=== PATIENT | female | born 1985 | race Caucasian/White ===

== ENCOUNTER → 2017-05-08 06:12 | Day surgery (SDC) | payer OTHER ==
[~2017-05-08 06:12] MED LIST: Buffered Lidocaine 0.9% SYRIN* 5 ML/SYR SYRINGE INTRADERM ONE; Dexamethasone IV* 4 MG/ML 1 ML (4 MG) ONE; DiMENhydriNATE IV* 50 MG/ML VIAL IV PUSH PRN; Famotidine IV* 10 MG/ML 2 ML (20 mg) IV ONE; Famotidine IV* 10 MG/ML 2 ML (20 mg) ONE; KETAMINE HCL* 50 MG/ML 10 ML VIAL ONE; Ketorolac INJ* 30 MG/ML 1 ML VIAL ONE; Lidocaine 2% PF * 5 ML VIAL ONE; Midazolam* 1 MG/ML 10 ML VIAL (10 MG) ONE; Ondansetron INJ* 2 MG/ML VIAL ONE; PROCHLORPERAZINE INJ 5 MG/ML 2 ML VIAL IV PRN; Propofol* 500 MG/50 ML BTL ONE; Scopolamine 1.5 mg* PATCH TRANSDERM PRN; Scopolamine PATCH Remove* 1 NOTE MISC PATCH OFF ONE; fentaNYL* 50 MCG/ML 2 ML VIAL (100 MCG VIAL) IV PRN; fentaNYL* 50 MCG/ML 2 ML VIAL (100 MCG VIAL) ONE; oxyCODONE/Acetamin 5/325 MG* TAB ONE; oxyCODONE/Acetamin 5/325 MG* TAB PO PRN
[2017-05-08 10:44] VITALS: BP 110/76
--- NOTE | 2017-05-09 14:21 | OP ---
DATE OF OPERATION: 05/08/17 [facility] DATE OF : 83 SURGEON: Christopher Kate MD ANESTHESIOLOGIST: Jarad Ratliff MD ANESTHESIA: Spinal anesthetic. PRE-OP DIAGNOSIS: An incomplete spontaneous miscarriage with secondary abnormal uterine bleeding. POST-OP DIAGNOSIS: An incomplete spontaneous miscarriage with secondary abnormal uterine bleeding, pending pathology. OPERATIVE PROCEDURE: Hysteroscopy and a dilation evacuation of the uterine cavity along with sharp curettage. ESTIMATED BLOOD LOSS: None. SPECIMEN SENT TO PATHOLOGY: Endometrial curettings. FLUIDS: She received 1200 cc of IV crystalloid fluid. URINE OUTPUT: 700 cc of clear urine. FINDINGS: On surgery, the patient was noted to have a uterus, which was sounded to 8 cm in an anteverted position. The cervix was about 0.5 cm dilated with scant blood coming through the cervix, and hysteroscopically the patient was noted to have an endometrium that had no distinct lesions with abundant tissue, and the amount of tissue removed was scant during the sharp curettage and dilation and evacuation. DESCRIPTION OF PROCEDURE: The patient was taken to the operating room where she was identified. She was placed on the operating table where spinal anesthetic was obtained without difficulty. She was then placed in the dorsal lithotomy position, prepped and draped in a normal sterile fashion. Attention was then brought on to the patient's perineum where the urethra was catheterized and the bladder was drained of clear urine. A weighted speculum was then inserted into the patient's vagina. The cervix was identified. It was then grasped with a single-tooth tenaculum. At this point, I proceeded to sound the cervix, which was noted to be in an anteverted position and sounded to 8 cm. The cervix, which had been dilated was dilators. At this point, I proceeded to perform a hysteroscopic survey of the endometrial cavity. A 30 degree hysteroscope was inserted into the cervix. The uterine cavity was then inflated with normal saline, and a survey of the patient's intrauterine cavity revealed findings as noted above. The hysteroscope was then removed, I then proceeded with a suction and curettage of the endometrial cavity, and the denudation of the endometrial cavity was then followed with a sharp curettage, after which I then proceeded with a second look with a hysteroscope and the hysteroscope confirmed complete denudation of the endometrial cavity. All the instruments were then removed from the patient's vagina. Sponge, lap, needle counts were correct x2. All the specimens were sent to Pathology. Pathology report is pending. The patient tolerated the procedure well. Sponge, lap, needle counts were correct x2. She was then transferred to recovery room area in stable condition. [id number]/[facility] #: [id number] MTDD
== END | disposition home or self-care (01) ==
LOC: OR 06:12
PROVIDERS: ATTEND Obstetrics & Gynecology
DX: O01.9 Hydatidiform mole, unspecified (principal); O08.1 Delayed or excessive hemorrhage following ectopic and molar pregnancy; F41.9 Anxiety disorder, unspecified; Z88.1 Allergy status to other antibiotic agents; Z87.891 Personal history of nicotine dependence
CPT/HCPCS: 88305; 88341; 88342; 88360; A9270-GY; J1100; J1885; J2250; J2405; J2704; J3010

== ENCOUNTER 2018-09-03 16:11 | Emergency (ER) | payer BC ==
[2018-09-03] MEDS ORDERED: NS 0.9% 1000 ML** 1,000 ML IV ONE ×2 (18:48→19:55)
[2018-09-03] MEDS ORDERED: Acetaminophen TAB* 325 MG PO ONE (19:02)
--- NOTE | 2018-09-03 19:13 | ED ---
Nausea/Vomiting/Diarrhea HPI - HPI Summary HPI Summary: 33 year old female who states she is approximately 24 1/2 weeks presents with onset of diarrhea 2 days ago. States she has been having 3-5 watery stools a day with the it being worse in the morning and slowing by evening. Last episode was around 3:00 pm. Associated with subjective fever, chills, body aches, and lightheadedness. She was seen at [facility] prior to coming to the ED and had a negative flu test. Continues to feel movement. Denies chest pain, palpitations, SOB, abdominal pain, nausea, vomiting , contractions, vaginal dicharge or bleeding, recent travel out of the country, antibiotic use, or sick contact. - History of Current Complaint Chief Complaint: EDNauseaVomitDiarrh Stated Complaint: 24 WKS PREG/DIZZINESS/DIARRHEA PER PT Time Seen by Provider: 09/03/18 18:43 Hx Obtained From: Patient Pain Intensity: 4 - Allergies/Home Medications Allergies/Adverse Reactions: Allergies Allergy/AdvReac Type Severity Reaction Status Date / Time amoxicillin Allergy Intermediate Rash Verified 09/03/18 16:17 Home Medications: Home Medications Sertraline* [Zoloft*] 100 mg PO BEDTIME 09/03/18 [History Confirmed 09/03/18] PMH/Surg Hx/FS Hx/Imm Hx Previously Healthy: Yes Endocrine/Hematology History: Denies: Hx Diabetes Cardiovascular History: Denies: Hx Hypertension Respiratory History: Reports: Other Respiratory Problems/Disorders - reports mild pneumonia summer 2016 History: Denies: Hx Renal Disease, Other Problems/Disorders Sensory History: Reports: Hx Contacts or Glasses - both, will wear glasses Denies: Hx Hearing Aid Opthamlomology History: Reports: Hx Contacts or Glasses - both, will wear glasses Psychiatric History: Reports: Hx Anxiety, Hx Depression - takes Zoloft - Cancer History Hx Chemotherapy: No - Surgical History Surgery Procedure, Year, and Place: wisdom teeth removed 2000. D&C 2016 Hx Anesthesia Reactions: No Infectious Disease History: No Infectious Disease History: Denies: Traveled Outside the [place] in Last 30 Days - Family History Known Family History: Positive: None Negative: Hypertension, Diabetes Family History: R & n/C - Social History Lives: With Family Alcohol Use: None Hx Substance Use: No Substance Use Type: Reports: None Hx Tobacco Use: No Smoking Status (MU): Former Smoker Amount Used/How Often: <5 cigarettes a day Have You Smoked in the Last Year: No Review of Systems Positive: Fever - Subjective, Chills, Fatigue ENT: Negative Negative: Palpitations, Chest Pain Negative: Shortness Of Breath, Cough Positive: Diarrhea. Negative: Abdominal Pain, Vomiting, Nausea Positive: no symptoms reported Positive: Myalgia Negative: Rash Negative: Headache All Other Systems Reviewed And Are Negative: Yes Physical Exam - Summary Physical Exam Summary: GENERAL APPEARANCE: Well developed, well nourished, alert and cooperative. Appears ill but nontoxic and in no acute distress. CARDIAC: Normal S1 and S2. No S3, S4 or murmurs. Rhythm is regular. There is no peripheral edema, cyanosis or pallor. Extremities are warm and well perfused. Capillary refill is less than 2 seconds. Peripheral pulses intact. LUNGS: Clear to auscultation without rales, rhonchi, wheezing or diminished breath sounds. ABDOMEN: Positive bowel sounds. Soft, nondistended, nontender. No guarding or rebound. No masses or hepatosplenomegally. Fundal height consistent with gestational age. MUSKULOSKELETAL: ROM intact to all extremities. No joint erythema or tenderness. Normal muscular development. Normal gait. SKIN: Skin normal color, texture and turgor with no lesions or eruptions. Triage Information Reviewed: Yes Vital Signs On Initial Exam: Initial Vitals Temp Pulse Resp BP Pulse Ox 98.2 F 109 18 132/72 99 09/03/18 16:12 09/03/18 16:12 09/03/18 16:12 09/03/18 16:12 09/03/18 16:12 Vital Signs Reviewed: Yes Diagnostics - Vital Signs Vital Signs Temp Pulse Resp BP Pulse Ox 09/03/18 18:57 94 09/03/18 16:12 98.2 F 109 18 132/72 99 - Laboratory Result Diagrams: 09/03/18 19:28 09/03/18 19:28 Lab Statement: Any lab studies that have been ordered have been reviewed, and results considered in the medical decision making process. Re-Evaluation - Re-Evaluation First Eval Re-Evaluation Time: 19:50 Change: Unchanged Comment: Patient states she feels about the same. She has completed her first liter of NS. Labs were reviewed with the patient. She has mild hypokalemia therefore will give oral replacement and a second liter of fluid. Second Eval Re-Evaluation Time: 21:15 Change: Improved Comment: Patient has completed her second liter of fluid and received the potasium. States is feeling much better. She has been able to urinate and reports no further episodes of diarrhea. UA is pending. Plan d/c to home pending UA results. Naus/Vom/Diarrhea Course/Dx - Course Course Of Treatment: 33 year old female who states she is approximately 24 1/2 weeks presents with onset of diarrhea 2 days ago. States she has been having 3-5 watery stools a day with the it being worse in the morning and slowing by evening. Last episode was around 3:00 pm. Associated with subjective fever, chills, body aches, and lightheadedness. She was seen at [facility] prior to coming to the ED and had a negative flu test. Continues to feel movement. Denies chest pain, palpitations, SOB, abdominal pain, nausea, vomiting, contractions, vaginal dicharge or bleeding, recent travel out of the country, antibiotic use, or sick contact. She was afebrile at triage with mild tachycardia and otherwise stable vital signs. Labs showed a normal WBC with mild hypokalemia and hypocalcemia. She was given acetaminophen 650 mg, 2 liters of NS and KCL 40 meq PO in the ED with improvement in her symptoms. She remained afebrile, pulse rate normalized, with no further episodes of diarrhea. She is to follow up with her PCP or [facility] in 3 days. Anticipatory guidance and warning symptoms were reviewed with the patient. Verbalizes understanding and agrees with POC. She was d/c'd home in stable condition. - Differential Dx/Diagnosis Differential Diagnoses - Female: , Gastroenteritis (Viral), Gastroenteritis (Bacterial), Diarrhea Provider Diagnosis: Acute diarrhea Condition At Discharge: Stable Discharge - Sign-Out/Discharge Documenting (check all that apply): Patient Departure Patient Received Moderate/Deep Sedation with Procedure: No - Discharge Plan Condition: Stable Disposition: HOME Patient Education Materials: Potassium Content of Foods List (ED), Acute Diarrhea (ED) Referrals: Avila Hadley, DO [Primary Care Provider] - 3 Days (If no improvement in symptoms.) Additional Instructions: Acute diarrhea typically resolves on its own without treatment over 2-3 days. The most important consideration with diarrhea is avoiding dehydration. Be sure to drink plenty of fluids. Avoid beverages containing caffeine or artificial sweeteners as these can worsen symptoms. Be sure to eat a well balanced diet. Boiled starches and cereals (potatoes, rice , cream of wheat, oatmeal) as well as food such as crackers, toast, bananas, soups and boiled vegetables are usually recommended if you are having watery diarrhea. Be sure to use good hand hygiene to prevent spreading infection. Use an over the counter pain medication such as acetaminophen (Tylenol) according to directions as needed for aches and pains. Your potassium level was slightly low likely from the diarrhea. We gave you a dose of potassium to replace what you lost. Make sure you are eating foods high in potassium for the next few days. A list of foods was provided to you. Follow up with your primary care provider or [facility] in 3 days if symptoms persist. Return to the emergency room if you have fever greater than 100.5 F, have severe abdominal pain, persistent vomiting, blood in your vomit or stool, you become weak or dizzy, or have any worsening of symptoms. - Billing Disposition and Condition Condition: STABLE Disposition: Home
[2018-09-03 19:40] LABS: ABS Basophils 0 10^3/ul (0-0.2); ABS Eosinophils 0 10^3/ul (0-0.6); ABS Lymphocytes 0.5 10^3/ul (1.0-4.8); ABS Monocytes 0.3 10^3/ul (0-0.8); ABS Neutrophils 4.3 10^3/ul (1.5-7.7); ABS Nucleated RBC 0 10^3/ul; Eosinophil % 0.6 %; Hematocrit 33 % (33-41); Hemoglobin 11.2 g/dL (12.0-16.0); Lymphocyte % 8.9 %; Mean Corpuscular HGB Conc 34 g/dL (31-36); Mean Corpuscular Hemoglobin 30 pg (27-31); Mean Corpuscular Volume 89 fL (80-97); Mean Platelet Volume 7.9 fL (7.4-10.4); Nucleated Red Blood Cells % 0.1; Platelet Count 170 10^3/uL (150-450); Red Blood Count 3.74 10^6 /uL (3.70-4.87); Red Cell Distribution Width 14 % (10.5-15); White Blood Count 5.1 10^3/uL (3.5-10.8)
[2018-09-03 19:51] LABS: Albumin 3.6 g/dL (3.2-5.2); Albumin/Globulin Ratio 1.3 (1-3); EGFR African American 170.9 (>60); EGFR Non-African American 141.2 (>60); Globulin 2.7 g/dL (2-4); Potassium 3.2 mmol/L (3.5-5.0); Total Bilirubin 0.4 mg/dL (0.2-1.0); Total Protein 6.3 g/dL (6.4-8.9)
[2018-09-03] MEDS ORDERED: Potassium Chlor TAB* 20 MEQ TAB.ER PO ONE (19:53)
[2018-09-03 21:29] LABS: Urine Appearance Clear; Urine Bilirubin Negative (Negative); Urine Blood Negative (Negative); Urine Color Yellow; Urine Glucose Negative (Negative); Urine Ketones Negative (Negative); Urine Nitrite Negative (Negative); Urine Protein Negative (Negative); Urine Specific Gravity 1.006 (1.010-1.030); Urine Urobilinogen Negative (Negative)
[2018-09-03 21:57] VITALS: BP 103/55
== END 2018-09-03 21:58 | disposition home or self-care (01) ==
LOC: ED 16:11
DX: O26.892 Other specified pregnancy related conditions, second trimester (principal); R19.7 Diarrhea, unspecified; R50.9 Fever, unspecified; M79.10 Myalgia, unspecified site; Z3A.24 24 weeks gestation of pregnancy; F32.9 Major depressive disorder, single episode, unspecified; Z88.0 Allergy status to penicillin; Z87.891 Personal history of nicotine dependence
CPT/HCPCS: 36415; 80053; 81003; 85025; 96360; 96361; 99283; A9270-GY

== ENCOUNTER 2018-11-17 19:52 | Inpatient (IN) | payer BC ==
[2018-11-17 20:49] LABS: ABS Lymphocytes 2.4 10^3/ul (1.0-4.8); ABS Monocytes 0.5 10^3/ul (0-0.8); ABS Neutrophils 6.5 10^3/ul (1.5-7.7); Eosinophil % 0.4 %; Hematocrit 35 % (35-47); Hemoglobin 11.7 g/dL (12.0-16.0); Lymphocyte % 25.4 %; Mean Corpuscular HGB Conc 34 g/dL (31-36); Mean Corpuscular Hemoglobin 30 pg (27-31); Mean Corpuscular Volume 90 fL (80-97); Mean Platelet Volume 8.5 fL (7.4-10.4); Platelet Count 175 10^3/uL (150-450); Red Blood Count 3.89 10^6 /uL (3.70-4.87); Red Cell Distribution Width 14 % (10.5-15); White Blood Count 9.5 10^3/uL (3.5-10.8)
[2018-11-17] MEDS ORDERED: Buffered Lidocaine 1% SYRIN* 1 ML/SYRINGE INTRADERM ONE (21:29)
[2018-11-17] MEDS ORDERED: Dinoprostone* 10 MG VAG.SUPP VAGINAL ONE (21:29)
[2018-11-17] MEDS ORDERED: Lactated Ringers 1000 ML Bag* 1,000 ML IV ONE (21:29)
--- NOTE | 2018-11-17 21:43 | HP ---
General Information - Reason for Visit Pt reports she was sitting on her couch at home, felt a trickle of fluid and when she stood up she felt a pop and a gush of clear fluid. Pt denies ctx reports feeling crampy and +FM. - General Information Maternal Age: 33 Grav: 4 Para: 1 SAB: 2 IEA: 0 Estimated Due Date: 12/21/18 Determined By: LMP Maternal Blood Type and Rh: A Positive - Results this Serology/RPR Result: Non-Reactive Rubella Result: Immune HBsAg Result: Negative HIV Result: Negative GBS Culture Result: Negative Past Medical History Delivery History: Hx Uncomplicated Vaginal Delivery Pertinent Past Medical History: See Records - anxiety, gestational diabetes, history of with atypical site nodule Pertinent Past Surgical History: See Records - D&E x 2 Pertinent Family History: See Records - PGM: breast cancer; MGM: colon CA; aunt: thyroid disorder - Antepartal Records Antepartal Records: Reviewed, Complicated by: - gestational diabetes, history of with atypical placental site nodule, ja lying placenta ( resolved) Review of Systems Constitutional: Comfortable CV Complaint: No Respiratory: Shortness of Breath: No Gastrointestinal: No Nausea/Vomiting, Normal Bowel Movement Genitourinary: Leaking Fluid, No Dysuria, No Bleeding Musculoskeletal: No Complaint, Pressure Neurological: No Headache, No Visual Changes Movement: Normal Exam Allergies/Adverse Reactions: Allergies amoxicillin Allergy (Intermediate, Verified 11/17/18 20:31) Rash T:97.9, P:73, R:16, BP:124/68, O2:98% Lab Values - Entire Visit: Laboratory Tests 11/17/18 11/17/18 20:30 20:30 WBC 9.5 RBC 3.89 Hgb 11.7 L Hct 35 MCV 90 MCH 30 MCHC 34 RDW 14 Plt Count 175 MPV 8.5 Neut % (Auto) 68.8 Lymph % (Auto) 25.4 [place] % (Auto) 5.0 Eos % (Auto) 0.4 Baso % (Auto) 0.4 Absolute Neuts (auto) 6.5 Absolute Lymphs (auto) 2.4 Absolute Monos (auto) 0.5 Absolute Eos (auto) 0.0 Absolute Basos (auto) 0.0 Absolute Nucleated RBC 0.0 Nucleated RBC % 0.0 Blood Type A Positive - Measurements Height: 5 ft 4 in Weight: 215 lb Weight in lbs: [id number] Body Mass Index (BMI): 36.8 Pre- Weight: 180 lb Weight Gained This : 35 lbs and 0 ozs - Exam Breast: Breast Exam Deferred CVA: No CVA Tenderness Extremities: No Edema Heart: Normal Rhythm/Heart Sounds HEENT: No Significant Findings Lungs: Clear Bilaterally Rectal: Rectal Exam Deferred Reflexes: DTR 2+ Thyroid: No Thyromegaly - Abdominal Exam Abdomen Exam: Fundal Height Consistent with Dates - Ultrasound/Biophysical Profile Ultrasound Status: Not Done Targeted Exam Findings Estimated Weight: 6lbs 10oz Presenting Part: Vertex Membrane Status: Leaking Amniotic Fluid Evaluation: Gross Rupture Bleeding/Discharge: None EFM Findings - External Monitor Findings Baseline Heart Rate: 130 External Monitor Findings: Accelerations Present, No Pattern of Variable or Late Decelerations, Variability Moderate, Baseline Stable Contractions: Irregular, Mild, < 45 Seconds Assessment/Plan - Assessment 33 y.o. , 35w1d EGA, Gestational diabetes (diet controlled), PPROM - Obstetrical Risk Factors Obstetrical Risk Factors: GBS Unknown, - Plan Plan: Induction - Date/Time of Admission Date of Admission: 11/17/18 Time of Admission: 21:00
[2018-11-17] MEDS ORDERED: Lactated Ringers 1000 ML Bag* 1,000 ML IV SCH (22:00)
[2018-11-17] MEDS ORDERED: ceFAZolin 2 GM PREMIX in ORs 2 GM/50 ML BAG IVPB ONE (22:00)
[2018-11-17] MEDS ORDERED: Promethazine INJ(RESTRICTED)* 25 MG/ML 1 ML VIAL IV PRN (22:06)
[2018-11-17] MEDS ORDERED: Nalbuphine* 10 MG/ML 1 ML VIAL IV PRN (22:06)
[2018-11-18] MEDS: Sertraline* 100 MG TAB PO SCH ×2 (00:22→21:02)
[2018-11-18] MEDS ORDERED: Oxytocin in LR* 20 UNITS/1,000 ML BAG IVPB ONE (03:59)
[2018-11-18] MEDS ORDERED: Glycerin ADULT SUPP PR PRN (04:23)
[2018-11-18] MEDS ORDERED: Acetaminophen TAB* 325 MG PO PRN (04:23)
--- NOTE | 2018-11-18 04:32 | PROCNOTE ---
[facility] OB: Delivery Note - Delivery A Date of : 11/18/18 Time of : 03:48 Sex: Male Score 1 Minute: 6 Score 5 Minutes: 7 - 10 min 9 Gestational Age in Weeks and Days at Delivery: 35 Weeks and 2 Days Delivery Method: Spontaneous Vaginal Labor: Induced Amniotic Fluid: Clear Estimated Blood Loss: 250 Anesthesia/Analgesia: None Delivered By: Elly Baird - Nursery Level of Nursery: Regular/Bedside - Perineum Perineal Injury: Perineal Laceration, 1st Degree Perineal Repair: By Delivering Practioner - Events Delivery Events of Note: Pitocin Only After Delivery Delivery Events of Note Comment: Succenturiate placenta, sent to pathology. Nuchal cord x 1, easily reduced
[2018-11-18] MEDS ORDERED: Lactated Ringers 1000 ML Bag* 1,000 ML IV SCH (05:00)
[2018-11-18] MEDS: Ibuprofen TAB* 600 MG PO PRN ×2 (05:02→16:30)
[2018-11-18] MEDS ORDERED: oxyCODONE/Acetamin 5/325 MG* TAB PO ONE (06:34)
[2018-11-18] MEDS: Oxytocin in LR* 20 UNITS/1,000 ML BAG IVPB SCH ×2 (06:52→08:20)
[2018-11-18] MEDS ORDERED: ceFAZolin VIAL(*) 1 GM in NS 0.9% 50 ML* 50 ML IVPB SCH (07:30)
[2018-11-18] MEDS ORDERED: fentaNYL* 50 MCG/ML 2 ML VIAL (100 MCG VIAL) IV ONE (08:00)
[2018-11-18] MEDS ORDERED: fentaNYL* 50 MCG/ML 2 ML VIAL (100 MCG VIAL) ONE (08:23)
[2018-11-18] MEDS ORDERED: Simethicone TAB* 80 MG TAB.CHEW PO SCH (08:30)
[2018-11-18] MEDS ORDERED: Lidocaine 1% INJ* 10 MG/ML 30 ML SDV ONE (09:02)
[2018-11-18] MEDS: Docusate CAP* 100 MG PO SCH ×3 (10:30→21:02)
[2018-11-18] MEDS: ceFAZolin 1 GM* Q8H (AddVan) IVPB SCH ×4 (11:09→19:39)
[2018-11-18] MEDS ORDERED: Clindamycin 900 MG IVPREMIX(* 900 MG/50 ML SDV IV ONE (14:00)
[2018-11-18] MEDS: Dibucaine 1% 28.35 GM TUBE PR PRN (15:28)
[2018-11-18] MEDS: Witch Hazel PAD* JAR TOPICAL PRN (15:29)
[2018-11-19] MEDS: Ibuprofen TAB* 600 MG PO PRN ×3 (02:07→19:44)
[2018-11-19 06:58] LABS: ABS Eosinophils 0.1 10^3/ul (0-0.6); ABS Lymphocytes 2.5 10^3/ul (1.0-4.8); ABS Monocytes 0.3 10^3/ul (0-0.8); Eosinophil % 0.8 %; Hematocrit 25 % (35-47); Hemoglobin 8.3 g/dL (12.0-16.0); Lymphocyte % 30.9 %; Mean Corpuscular HGB Conc 33 g/dL (31-36); Mean Corpuscular Hemoglobin 30 pg (27-31); Mean Corpuscular Volume 90 fL (80-97); Mean Platelet Volume 8.2 fL (7.4-10.4); Platelet Count 147 10^3/uL (150-450); Red Cell Distribution Width 14 % (10-15)
[2018-11-19] MEDS: Ferrous Gluconate TAB* 324 MG TAB PO SCH ×2 (08:33→21:08)
[2018-11-19] MEDS: Docusate CAP* 100 MG PO SCH ×3 (08:35→21:08)
[2018-11-19] MEDS: Dibucaine 1% 28.35 GM TUBE PR PRN (18:15)
[2018-11-19] MEDS: Witch Hazel PAD* JAR TOPICAL PRN (18:15)
[2018-11-19] MEDS: Sertraline* 100 MG TAB PO SCH (21:08)
[2018-11-20] MEDS: Ibuprofen TAB* 600 MG PO PRN ×2 (04:03→11:43)
[2018-11-20 09:09] VITALS: BP 117/66
[2018-11-20] MEDS: Docusate CAP* 100 MG PO SCH (09:16)
[2018-11-20] MEDS: Ferrous Gluconate TAB* 324 MG TAB PO SCH (09:16)
== END 2018-11-20 14:29 | disposition home or self-care (01) | DRG 560 ==
LOC: MCHOBOUT 19:52 → MCHOB 20:15
PROVIDERS: ADMIT Midwife; ATTEND Midwife
PROC: 10E0XZZ Delivery of Products of Conception, External Approach (ICD-10-PCS; principal; 2018-11-18)
PROC: 3E033VJ Introduction of Other Hormone into Peripheral Vein, Percutaneous Approach (ICD-10-PCS; 2018-11-18)
DX: O42.013 Preterm premature rupture of membranes, onset of labor within 24 hours of rupture, third trimester (principal); Z37.0 Single live birth; O24.420 Gestational diabetes mellitus in childbirth, diet controlled; O99.344 Other mental disorders complicating childbirth; F41.9 Anxiety disorder, unspecified; O69.81X0 Labor and delivery complicated by cord around neck, without compression, not applicable or unspecified; O90.81 Anemia of the puerperium; D64.9 Anemia, unspecified; Z3A.35 35 weeks gestation of pregnancy
CPT/HCPCS: 36415; 85025; 86850; 86900; 86901; 87070; 87077; 87184; 87186; 88305; 88307; A9270-GY; J0690; J2300; J2550; J3010

== ENCOUNTER 2018-11-24 19:20 | Emergency (ER) | payer BC ==
[2018-11-24] MEDS ORDERED: NS 0.9% 1000 ML** 1,000 ML IV ONE (19:43)
[2018-11-24 20:09] LABS: ABS Basophils 0.1 10^3/ul (0-0.2); ABS Eosinophils 0.2 10^3/ul (0-0.6); ABS Lymphocytes 3.1 10^3/ul (1.0-4.8); ABS Monocytes 0.3 10^3/ul (0-0.8); ABS Neutrophils 6.1 10^3/ul (1.5-7.7); Hematocrit 31 % (35-47); Hemoglobin 10.5 g/dL (12.0-16.0); Lymphocyte % 31.6 %; Mean Corpuscular HGB Conc 34 g/dL (31-36); Mean Corpuscular Hemoglobin 30 pg (27-31); Mean Corpuscular Volume 90 fL (80-97); Mean Platelet Volume 7.4 fL (7.4-10.4); Platelet Count 291 10^3/uL (150-450); Red Blood Count 3.46 10^6 /uL (3.70-4.87); Red Cell Distribution Width 14 % (10-15); White Blood Count 9.8 10^3/uL (3.5-10.8)
--- NOTE | 2018-11-24 20:14 | ED ---
Abdominal Pain/Female - HPI Summary HPI Summary: Patient with history of having given 6 days ago complains of new onset fever up to 100.8 and new onset odor to vaginal discharge. Patient has persistent cramping, nausea and vaginal clots since giving , with no change in these symptoms. Followed by [facility] Dr. Kate who advised patient to come to the ED out of concern for retained products of conception. Medical history is none. . Patient gave 5 weeks early, vaginally. Denies any other symptoms, injury or pain. Advil taken today at 6 PM, improvement in abdominal cramping. Current pain here in the ED 07/25. - History of Current Complaint Chief Complaint: EDOBProblems Stated Complaint: LEFT OVER PLACENTA PER PT Time Seen by Provider: 11/24/18 19:35 Hx Obtained From: Patient Onset/Duration: Sudden Onset, Lasting Hours Severity Initially: Mild Severity Currently: Mild Pain Intensity: 2 Pain Scale Used: 0-10 Numeric Location: Discrete At: RLQ, Discrete At: LLQ, Suprapubic Radiates to: Back Character: Cramping Aggravating Factor(s): Nothing Alleviating Factor(s): Nothing Associated Signs and Symptoms: Positive: Fever, Back Pain, Vaginal Discharge, Nausea Allergies/Adverse Reactions: Allergies Allergy/AdvReac Type Severity Reaction Status Date / Time amoxicillin Allergy Intermediate Rash Verified 11/24/18 19:24 PMH/Surg Hx/FS Hx/Imm Hx Endocrine/Hematology History: Reports: Hx Diabetes - GDM1 Cardiovascular History: Denies: Hx Hypertension Respiratory History: Reports: Other Respiratory Problems/Disorders - reports mild pneumonia summer 2016 History: Denies: Hx Renal Disease, Other Problems/Disorders Sensory History: Reports: Hx Contacts or Glasses - both, will wear glasses Denies: Hx Hearing Aid Opthamlomology History: Reports: Hx Contacts or Glasses - both, will wear glasses EENT History: Denies: Hx Deafness Neurological History: Denies: Hx Dementia Psychiatric History: Reports: Hx Anxiety, Hx Depression - takes Zoloft - Cancer History Hx Chemotherapy: No - Surgical History Surgery Procedure, Year, and Place: wisdom teeth removed 2000. D&C 2016 Hx Anesthesia Reactions: No Infectious Disease History: No Infectious Disease History: Denies: Traveled Outside the [place] in Last 30 Days - Family History Known Family History: Positive: None Negative: Hypertension, Diabetes Family History: R & n/C - Social History Alcohol Use: None Hx Substance Use: No Substance Use Type: Reports: None Hx Tobacco Use: No Smoking Status (MU): Former Smoker Amount Used/How Often: <5 cigarettes a day Have You Smoked in the Last Year: No Review of Systems Positive: Fever Eyes: Negative ENT: Negative Cardiovascular: Negative Respiratory: Negative Positive: Abdominal Pain, Nausea Genitourinary: Negative Musculoskeletal: Negative Skin: Negative Neurological: Negative Psychological: Normal All Other Systems Reviewed And Are Negative: Yes Physical Exam Triage Information Reviewed: Yes Vital Signs On Initial Exam: Initial Vitals Temp Pulse Resp BP Pulse Ox 98.4 F 68 16 135/89 99 11/24/18 19:22 11/24/18 19:22 11/24/18 19:22 11/24/18 19:22 11/24/18 19:22 Vital Signs Reviewed: Yes Appearance: Positive: Well-Appearing Skin: Positive: Warm Head/Face: Positive: Normal Head/Face Inspection Eyes: Positive: Normal ENT: Positive: Normal ENT inspection Neck: Positive: Supple Respiratory/Lung Sounds: Positive: Clear to Auscultation Cardiovascular: Positive: Normal Abdomen Description: Positive: Other: - Tender in lower quadrants and suprapubically. Abdominal exam otherwise unremarkable. Musculoskeletal: Positive: Normal Neurological: Positive: Normal Psychiatric: Positive: Normal AVPU Assessment: Alert - Radisson Coma Scale Best Eye Response: 4 - Spontaneous Best Motor Response: 6 - Obeys Commands Best Verbal Response: 5 - Oriented Coma Scale Total: 15 Diagnostics - Vital Signs Vital Signs Temp Pulse Resp BP Pulse Ox 11/24/18 19:31 68 129/73 99 11/24/18 19:30 86 98 11/24/18 19:22 98.4 F 68 16 135/89 99 - Laboratory Lab Results: Lab Results 11/24/18 Range/Units 19:57 WBC 9.8 (3.5-10.8) 10^3/uL RBC 3.46 L (3.70-4.87) 10^6 /uL Hgb 10.5 L (12.0-16.0) g/dL Hct 31 L (35-47) % MCV 90 (80-97) fL MCH 30 (27-31) pg MCHC 34 (31-36) g/dL RDW 14 (10-15) % Plt Count 291 (150-450) 10^3/uL MPV 7.4 (7.4-10.4) fL Neut % (Auto) 62.3 % Lymph % (Auto) 31.6 % [place] % (Auto) 3.5 % Eos % (Auto) 2.0 % Baso % (Auto) 0.6 % Absolute Neuts (auto) 6.1 (1.5-7.7) 10^3/ul Absolute Lymphs (auto) 3.1 (1.0-4.8) 10^3/ul Absolute Monos (auto) 0.3 (0-0.8) 10^3/ul Absolute Eos (auto) 0.2 (0-0.6) 10^3/ul Absolute Basos (auto) 0.1 (0-0.2) 10^3/ul Absolute Nucleated RBC 0.0 10^3/ul Nucleated RBC % 0.0 Result Diagrams: 11/24/18 19:57 11/24/18 19:57 Lab Statement: Any lab studies that have been ordered have been reviewed, and results considered in the medical decision making process. Abdominal Pain Fem Course/Dx - Course Course Of Treatment: Patient with history of having given 6 days ago complains of new onset fever up to 100.8 and new onset odor to vaginal discharge. Patient has persistent cramping, nausea and vaginal clots since giving , with no change in these symptoms. Followed by [facility] Dr. Kate who advised patient to come to the ED out of concern for retained products of conception. Medical history is none. . Patient gave 5 weeks early , vaginally. Denies any other symptoms, injury or pain. Advil taken today at 6 PM, improvement in abdominal cramping. Current pain here in the ED 07/25. Vital signs within normal limits. Labs unremarkable. Pelvic ultrasound positive for retained products of conception. Discussed patient with [facility] Dr. Kate who recommended Rocephin 1 g IV here in the ED, prescription for third-generation cephalosporin by mouth and follow-up in the clinic tomorrow. Patient given Rocephin 1 g here in the ED. Rx for Ceftin ear. Patient understands and approves of plan. - Diagnoses Provider Diagnoses: Retained products of conception Discharge - Sign-Out/Discharge Documenting (check all that apply): Patient Departure Patient Received Moderate/Deep Sedation with Procedure: No - Discharge Plan Condition: Stable Disposition: HOME Prescriptions: Cefdinir [Cefdinir 300 MG CAP] 300 mg PO BID 5 Days #10 capsule Patient Education Materials: Fever in Adults (ED) Referrals: Avila Hadley DO [Primary Care Provider] - Christopher Kate MD [Medical Doctor] - Additional Instructions: Follow up with [facility] Dr. Kate tomorrow for further evaluation. Take antibiotics as directed. Continue take Tylenol or ibuprofen for control of fever. Return to the ED for any new or worsening symptoms. - Billing Disposition and Condition Condition: STABLE Disposition: Home
[2018-11-24 20:32] LABS: Albumin 4.1 g/dL (3.2-5.2); Albumin/Globulin Ratio 1.4 (1-3); BUN/Creatinine Ratio 18.2 (8-20); C Reactive Protein 14.14 mg/L (<8.01); Calcium 9.4 mg/dL (8.6-10.3); EGFR Non-African American 102.5 (>60); Potassium 3.7 mmol/L (3.5-5.0); Total Bilirubin 0.2 mg/dL (0.2-1.0); Total Protein 7.1 g/dL (6.4-8.9)
[2018-11-24] MEDS ORDERED: cefTRIAXone(*) 1 GM in NS 0.9% 50 ML* 50 ML IVPB ONE (23:08)
[2018-11-25 00:35] VITALS: BP 116/71
== END 2018-11-25 00:33 | disposition home or self-care (01) ==
LOC: ED 19:20
DX: O72.2 Delayed and secondary postpartum hemorrhage (principal)
CPT/HCPCS: 36415; 76856; 80053; 83605; 85025; 86140; 87040; 96361; 96365; 99283; J0696

== ENCOUNTER → 2019-01-07 05:48 | Day surgery (SDC) | payer BC ==
[~2019-01-07 05:48] MED LIST changes: +Acetaminophen TAB* 325 MG ONE; +Acetaminophen TAB* 325 MG PO PRN; -Buffered Lidocaine 0.9% SYRIN* 5 ML/SYR SYRINGE INTRADERM ONE; +Buffered Lidocaine 1% SYRIN* 1 ML/SYRINGE INTRADERM ONE; +DOXYCYCLINE IVPB ONE; +DiMENhydriNATE IV* 50 MG/ML VIAL ONE; +HYDROmorphone INJ1* 1 MG/ML SYRINGE ONE; -KETAMINE HCL* 50 MG/ML 10 ML VIAL ONE; +Lactated Ringers 1000 ML Bag* 1,000 ML IV SCH; +Methylergonovine INJ* 0.2 MG/ML 1ML AMP ONE; -Midazolam* 1 MG/ML 10 ML VIAL (10 MG) ONE; +Midazolam* 1 MG/ML 5 ML VIAL (5 MG) ONE; +NS IVPB ONE; +Naloxone* 0.4 MG/ML 1 ML VIAL IV PRN; +OXYTOCIN* 10 UNITS/ML 1 ML VIAL ONE; -PROCHLORPERAZINE INJ 5 MG/ML 2 ML VIAL IV PRN; +Propofol* 10 MG/ML 20 ML BTL ONE; -Propofol* 500 MG/50 ML BTL ONE; -Scopolamine 1.5 mg* PATCH TRANSDERM PRN; -Scopolamine PATCH Remove* 1 NOTE MISC PATCH OFF ONE; -fentaNYL* 50 MCG/ML 2 ML VIAL (100 MCG VIAL) IV PRN; +oxyCODONE TAB* 5 MG TAB PO PRN; -oxyCODONE/Acetamin 5/325 MG* TAB ONE; -oxyCODONE/Acetamin 5/325 MG* TAB PO PRN
[2019-01-07] MEDS: HYDROmorphone INJ1* 1 MG/ML SYRINGE IV PRN ×2 (09:34→09:43)
[2019-01-07 10:20] VITALS: BP 127/42
== END | disposition home or self-care (01) ==
LOC: OR 05:48
PROVIDERS: ATTEND Obstetrics & Gynecology
DX: O72.0 Third-stage hemorrhage (principal)
CPT/HCPCS: 88305; A9270-GY; J1100; J1170; J1240; J1885; J2210; J2250; J2405; J2590; J2704; J3010

== ENCOUNTER 2019-03-27 03:11 | Emergency (ER) | payer BC ==
[2019-03-27 03:44] LABS: ABS Eosinophils 0.1 10^3/ul (0-0.6); ABS Lymphocytes 2.6 10^3/ul (1.0-4.8); ABS Monocytes 0.4 10^3/ul (0-0.8); ABS Neutrophils 5.4 10^3/ul (1.5-7.7); Eosinophil % 0.9 %; Hematocrit 40 % (35-47); Hemoglobin 13.1 g/dL (12.0-16.0); Lymphocyte % 30.6 %; Mean Corpuscular HGB Conc 33 g/dL (31-36); Mean Corpuscular Hemoglobin 28 pg (27-31); Mean Corpuscular Volume 85 fL (80-97); Mean Platelet Volume 7.7 fL (7.4-10.4); Nucleated Red Blood Cells % 0.1; Platelet Count 261 10^3/uL (150-450); Red Blood Count 4.63 10^6 /uL (3.70-4.87); Red Cell Distribution Width 13 % (10-15); White Blood Count 8.4 10^3/uL (3.5-10.8)
--- NOTE | 2019-03-27 03:45 | ED ---
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 She describes the pain as sharp and notes that it is intermittent. She rates her current pain severity a 9/10. She takes Zoloft at home and took ibuprofen for the pain. No aggravating or alleviating factors noted. She also denies any fever, vomiting, or diarrhea. She has recent Hx of frequent UTI. - History of Current Complaint Chief Complaint: EDAbdPain Stated Complaint: ABD PAIN PER PT Time Seen by Provider: 03/27/19 03:13 Hx Obtained From: Patient Onset/Duration: Sudden Onset, Lasting Hours, Still Present Timing: Intermittent Episode Lasting - minutes Severity Initially: Severe Severity Currently: Severe Pain Intensity: 9 Pain Scale Used: 0-10 Numeric Location: Discrete At: RLQ Character: Sharp Aggravating Factor(s): Nothing Alleviating Factor(s): Nothing Associated Signs and Symptoms: Negative: Fever, Vomiting, Diarrhea Allergies/Adverse Reactions: Allergies Allergy/AdvReac Type Severity Reaction Status Date / Time amoxicillin Allergy Intermediate Rash Verified 03/27/19 03:14 PMH/Surg Hx/FS Hx/Imm Hx Endocrine/Hematology History: Reports: Hx Diabetes - GDM1, Hx Anemia - ONLY AFTER DELIVERY 11/2018 Cardiovascular History: Denies: Hx Hypertension, Other Cardiovascular Problems/Disorders Respiratory History: Reports: Other Respiratory Problems/Disorders - reports mild pneumonia summer 2016 GI History: Denies: Other GI Disorders History: Denies: Hx Renal Disease, Other Problems/Disorders Musculoskeletal History: Denies: Other Musculoskeletal History Sensory History: Reports: Hx Contacts or Glasses - both, will wear glasses Denies: Hx Deafness, Hx Hearing Aid Opthamlomology History: Reports: Hx Contacts or Glasses - both, will wear glasses Neurological History: Denies: Hx Dementia, Other Neuro Impairments/Disorders Psychiatric History: Reports: Hx Anxiety, Hx Depression - takes Zoloft - Cancer History Hx Chemotherapy: No - Surgical History Surgery Procedure, Year, and Place: wisdom teeth removed 2000. D&C 2016 Hx Anesthesia Reactions: No Infectious Disease History: No Infectious Disease History: Denies: Traveled Outside the [place] in Last 30 Days - Family History Known Family History: Negative: Hypertension, Diabetes Family History: R & n/C - Social History Alcohol Use: None Hx Substance Use: No Substance Use Type: Reports: None Hx Tobacco Use: No Smoking Status (MU): Former Smoker Amount Used/How Often: <5 cigarettes a day Have You Smoked in the Last Year: No Review of Systems Negative: Fever Positive: Abdominal Pain. Negative: Vomiting, Diarrhea All Other Systems Reviewed And Are Negative: Yes Physical Exam - Summary Physical Exam Summary: General: Well-developed, Well-nourished female. No acute distress. HEENT: Normocephalic, Atraumatic. Eyes: Conjuctiva normal, PERRL. Ears: TMs within normal limits. Nares: (-) discharge, (-) erythema. Oropharynx: Clear, mucous membranes moist, (-) exudates. Neck: Soft, FROM, (-) lymphadenopathy, (-) thyromegaly, (-) JVD. Cardiovascular: Normal sinus rhythm, (-) murmur. Lungs: Clear to auscultation bilaterally (-) wheezes, (-) rales, (-) rhonchi. Abdomen: Soft, non-tender, non-distended, (-) organomegaly, normal bowel sounds. Back: (-) CVA tenderness Extremities: No edema. Skin: Warm, dry, (-) rash. Neuro: Alert and oriented x3, no focal deficits. Psychiatric: Mood normal, affect normal. Triage Information Reviewed: Yes Vital Signs On Initial Exam: Initial Vitals Temp Pulse Resp BP Pulse Ox 98.7 F 81 15 132/91 98 03/27/19 03:13 03/27/19 03:13 03/27/19 03:13 03/27/19 03:13 03/27/19 03:13 Vital Signs Reviewed: Yes Procedures - Sedation Patient Received Moderate/Deep Sedation with Procedure: No Diagnostics - Vital Signs Vital Signs Temp Pulse Resp BP Pulse Ox 03/27/19 03:13 98.7 F 81 15 132/91 98 - Laboratory Result Diagrams: 03/27/19 03:30 03/27/19 03:30 Lab Statement: Any lab studies that have been ordered have been reviewed, and results considered in the medical decision making process. Re-Evaluation - Re-Evaluation First Eval Re-Evaluation Time: 04:58 Comment: Pt is in mild discomfort. Cannot urinate yet, will give additional fluids. 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 Test results normal except for BUN/Creatinine 22.2, Glucose 125, CRP 12.54, Ur Specific [place] 1.006, Ur Blood 3+, Ur Squamous Epith Cells present, and Ur Bacteria 1+. In the ED course the Pt was given 15 mg Toradol, 4 mg Zofran, and 2000 mls fluids. Final Dx is abd pain. Pt will be discharged home with PCP follow up. Pt is agreeable with this plan. - Diagnoses Provider Diagnoses: Abdominal pain Discharge ED - Sign-Out/Discharge Documenting (check all that apply): Patient Departure - discharge - Discharge Plan Condition: Stable Disposition: HOME Patient Education Materials: Ovarian Cyst (ED), Abdominal Pain (ED) Referrals: [facility] [Outside] - 3 Days Additional Instructions: Please follow up with your primary care physician within three days. Please return to ED for any new or worsening symptoms. - Billing Disposition and Condition Condition: STABLE Disposition: Home - Attestation Statements Document Initiated by Kaleig[place]: Yes Documenting Scribe: Dev Veronica Provider For Whom Cathryn is Documenting (Include Credential): Sol Modi MD Scribe Attestation: IDev, scribed for Sol Modi MD on 03/27/19 at 0643. Scribe Documentation Reviewed: Yes Provider Attestation: The documentation as recorded by the dxionibDev xie accurately reflects the service I personally performed and the decisions made by me, Sol Modi MD Status of Scribe Document: Viewed
[2019-03-27] MEDS ORDERED: Ondansetron INJ* 2 MG/ML VIAL IV ONE (03:48)
[2019-03-27] MEDS ORDERED: NS 0.9% 1000 ML** 1,000 ML IV ONE ×2 (03:48→04:58)
[2019-03-27] MEDS ORDERED: Ketorolac INJ* 30 MG/ML 1 ML VIAL IV PUSH ONE (03:48)
[2019-03-27 04:00] LABS: ALT 16 U/L (7-52); AST 18 U/L (13-39); Albumin 4.3 g/dL (3.2-5.2); Albumin/Globulin Ratio 1.5 (1-3); Alkaline Phosphatase 86 U/L (34-104); Anion Gap 9 mmol/L (2-11); BUN/Creatinine Ratio 22.2 (8-20); Blood Urea Nitrogen 14 mg/dL (6-24); C Reactive Protein 12.54 mg/L (<8.01); CO2 Carbon Dioxide 23 mmol/L (22-32); Calcium 8.8 mg/dL (8.6-10.3); Chloride 107 mmol/L (101-111); EGFR African American 130.1 (>60); EGFR Non-African American 107.5 (>60); Globulin 2.8 g/dL (2-4); Glucose 125 mg/dL (70-100); Potassium 3.7 mmol/L (3.5-5.0); Sodium 139 mmol/L (135-145); Total Protein 7.1 g/dL (6.4-8.9)
[2019-03-27 04:22] LABS: HCG Pregnancy < 0.60 mIU/mL
[2019-03-27 06:30] LABS: Urine Appearance Clear; Urine Bacteria 1+ (Absent); Urine Bilirubin Negative (Negative); Urine Blood 3+ (Negative); Urine Color Straw; Urine Glucose Negative (Negative); Urine Ketones Negative (Negative); Urine Nitrite Negative (Negative); Urine Protein Negative (Negative); Urine Red Blood Cell Trace(0-2/hpf) (Absent); Urine Specific Gravity 1.006 (1.010-1.030); Urine Squamous Epithelial Cell Present (Absent); Urine Urobilinogen Negative (Negative); Urine White Blood Cell Trace(0-5/hpf) (Absent)
[2019-03-27 06:49] VITALS: BP 117/68
== END 2019-03-27 06:43 | disposition home or self-care (01) ==
LOC: ED 03:11
DX: R10.9 Unspecified abdominal pain (principal); F41.9 Anxiety disorder, unspecified; F32.9 Major depressive disorder, single episode, unspecified; Z87.891 Personal history of nicotine dependence; Z79.899 Other long term (current) drug therapy; Z88.0 Allergy status to penicillin
CPT/HCPCS: 36415; 80053; 81003; 81015; 83605; 84702; 85025; 85610; 86140; 87077; 87086; 96361; 96374; 96375; 99283; J1885; J2405

== ENCOUNTER 2019-03-27 19:23 | Emergency (ER) | payer BC ==
--- NOTE | 2019-03-27 20:24 | ED ---
Abdominal Pain/Female - HPI Summary HPI Summary: Patient is a 34 y/o F presenting to [facility] with complaints of sudden onset and intermittent RLQ pain. She reports that the pain had initially onset suddenly at 0200 03/27/19. She came to [facility] and was evaluated. Patient received medications and pain resolved. She was discharged to home. Patient went home and slept. When she awoke, the patient had some pain, but states that it was dull and less severe. When she went to her sister's home later today, 03/27/19, she had onset of pain once more. Pain is characterized as a cramping pain. Patient notes that she is currently on her menstrual cycle, but states that her current pain is more severe and of a different character than typical menstrual pain. No similar previous episodes of pain are reported. She has been taking Tylenol and ibuprofen for the pain. Patient denies fever, decreased appetite, and constipation. She states that she had some nausea during her first visit to ED but none at present. Patient denies Hx of abdominal surgeries. She is on Zoloft. Vitals pulse 62, o2 99, BP 143/75. Per triage, pain is rated 9/10, nothing is noted to aggravate/alleviate Sx, she last took Motrin 400 mg at 1830. Home medications and allergies are reviewed. - History of Current Complaint Chief Complaint: EDAbdPain Stated Complaint: PELVIC PAIN Time Seen by Provider: 03/27/19 20:18 Hx Obtained From: Patient Onset/Duration: Still Present Timing: Intermittent Episode Lasting Severity Currently: Severe Pain Intensity: 9 Pain Scale Used: 0-10 Numeric Location: Discrete At: RLQ Character: Cramping Aggravating Factor(s): Nothing Alleviating Factor(s): Nothing Associated Signs and Symptoms: Negative: Fever, Constipation, Decreased Appetite , Nausea - none present visit Allergies/Adverse Reactions: Allergies Allergy/AdvReac Type Severity Reaction Status Date / Time amoxicillin Allergy Intermediate Rash Verified 03/27/19 19:32 PMH/Surg Hx/FS Hx/Imm Hx Endocrine/Hematology History: Reports: Hx Diabetes - GDM1, Hx Anemia - ONLY AFTER DELIVERY 11/2018 Cardiovascular History: Denies: Hx Hypertension, Other Cardiovascular Problems/Disorders Respiratory History: Reports: Other Respiratory Problems/Disorders - reports mild pneumonia summer 2016 GI History: Denies: Other GI Disorders History: Denies: Hx Renal Disease, Other Problems/Disorders Musculoskeletal History: Denies: Other Musculoskeletal History Sensory History: Reports: Hx Contacts or Glasses - both, will wear glasses Denies: Hx Deafness, Hx Hearing Aid Opthamlomology History: Reports: Hx Contacts or Glasses - both, will wear glasses Neurological History: Denies: Hx Dementia, Other Neuro Impairments/Disorders Psychiatric History: Reports: Hx Anxiety, Hx Depression - takes Zoloft - Cancer History Hx Chemotherapy: No - Surgical History Surgery Procedure, Year, and Place: wisdom teeth removed 2000. D&C 2016 Hx Anesthesia Reactions: No - Immunization History Immunizations Up to Date: Yes Infectious Disease History: No Infectious Disease History: Denies: Traveled Outside the [place] in Last 30 Days - Family History Known Family History: Negative: Hypertension, Diabetes - Social History Alcohol Use: None Hx Substance Use: No Substance Use Type: Reports: None Hx Tobacco Use: No Smoking Status (MU): Former Smoker Amount Used/How Often: <5 cigarettes a day Have You Smoked in the Last Year: No Review of Systems Negative: Fever Gastrointestinal: Other - negative - decreased appetite, constipation Positive: Abdominal Pain. Negative: Nausea - none this visit All Other Systems Reviewed And Are Negative: Yes Physical Exam - Summary Physical Exam Summary: Appearance: Well-appearing, Well-nourished, lying in bed comfortably Skin: Warm, dry, no obvious rash Eyes: sclera anicteric, no conjunctival pallor ENT: mucous membranes moist, pharynx appears normal Neck: Supple, nontender Respiratory: Clear to auscultation, no signs of respiratory distress Cardiovascular: Normal S1, S2. No murmurs. Normal distal pulses in tibial and radial bilaterally. Abdomen: RLQ tenderness with rebound but minimal guarding. Soft, normal active bowel sounds present Musculoskeletal: Normal, Strength/ROM Intact Neurological: A&Ox3, awake and alert, mentation is normal, speech is fluent and appropriate Psychiatric: affect is normal, does not appear anxious or depressed Triage Information Reviewed: Yes Vital Signs On Initial Exam: Initial Vitals Temp Pulse Resp BP Pulse Ox 98.1 F 61 15 154/98 100 03/27/19 19:30 03/27/19 19:30 03/27/19 19:30 03/27/19 19:30 03/27/19 19:30 Vital Signs Reviewed: Yes Procedures - Sedation Patient Received Moderate/Deep Sedation with Procedure: No Diagnostics - Vital Signs Vital Signs Temp Pulse Resp BP Pulse Ox 03/27/19 19:30 98.1 F 61 15 154/98 100 - Laboratory Result Diagrams: 03/27/19 20:40 03/27/19 20:40 Lab Statement: Any lab studies that have been ordered have been reviewed, and results considered in the medical decision making process. - CT ABD/PEL CT CT Interpretation Completed By: Radiologist Summary of CT Findings: ABD/PEL CT IMPRESSION: No CT findings to correlate with patient's symptomatology. THIS REPORT WAS REVIEWED BY DR. PIERRE. - Ultrasound PELVIC US Ultrasound Interpretation Completed By: Radiologist Summary of Ultrasound Findings: PELVIC US IMPRESSION: Sonographically normal uterus and ovaries. No ovarian torsion. THIS REPORT WAS REVIEWED BY DR. PIERRE. Re-Evaluation - Re-Evaluation First Eval Re-Evaluation Time: 22:55 Comment: US was discussed. CT ABD/PEL to be done. Second Eval Re-Evaluation Time: 01:20 Comment: Patient had reports of nausea. Zofran 8 mg given. Abdominal Pain Fem Course/Dx - Course Course Of Treatment: Patient is a 34 y/o F presenting to [facility] with complaints of sudden onset and intermittent RLQ pain. She reports that the pain had initially onset suddenly at 0200 03/27/19. She came to [facility] and was evaluated. Patient received medications and pain resolved. She was discharged to home. Patient went home and slept. When she awoke, the patient had some pain, but states that it was dull and less severe. When she went to her sister's home later today, 03/27/19, she had onset of pain once more. Pain is characterized as a cramping pain. Patient notes that she is currently on her menstrual cycle, but states that her current pain is more severe and of a different character than typical menstrual pain. No similar previous episodes of pain are reported. She has been taking Tylenol and ibuprofen for the pain. Patient denies fever, decreased appetite, and constipation. She states that she had some nausea during her first visit to ED but none at present. On physical exam, RLQ tenderness with rebound but minimal guarding. PELVIS US IMPRESSION: Sonographically normal uterus and ovaries. No ovarian torsion. Bloodwork was obtained. Lipase, AST, ALT, alk phos, WBC were WNL. Abnormal values include CRP of 19.94, glucose 116, Hgb 11.7. During ED course, patient received fluids and toradol 10 mg IV PUSH. She later had complaints of nausea and was given Zofran 8 mg. ABD/PEL CT IMPRESSION: No CT findings to correlate with patient's symptomatology. Patient was discharged to home with PCP follow up in three days. - Diagnoses Provider Diagnoses: Abdominal pain Discharge ED - Sign-Out/Discharge Documenting (check all that apply): Patient Departure - discharge - Discharge Plan Condition: Good Disposition: HOME Patient Education Materials: Acute Abdominal Pain (ED) Referrals: [facility] [Outside] - 3 Days (if not improving) Additional Instructions: The blood and imaging tests we did tonight did not show any sign of a serious condition, like a ruptured cyst, appendicitis, abnormal fibroids, etc. At this point I cannot give you a precise diagnosis, but I am confident we have ruled out a serious condition, something that might require surgery for example. We are ok to let you go home and rest, and you can continue to take OTC pain medications. If things aren't improving over the next few days, I would seek a followup check with us or a provider of your choice. 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 - Billing Disposition and Condition Condition: GOOD Disposition: Home - Attestation Statements Document Initiated by Cathryn: Yes Documenting Scribe: ARSEN RIOS Provider For Whom Cathryn is Documenting (Include Credential): JESUS PIERRE MD Scribe Attestation: IARSEN, scribed for JESUS PIERRE MD on 03/29/19 at 0329. Scribe Documentation Reviewed: Yes Provider Attestation: The documentation as recorded by the ARSEN luciano accurately reflects the service I personally performed and the decisions made by me, JESUS PIERRE MD Status of Scribe Document: Viewed
[2019-03-27] MEDS ORDERED: NS 0.9% 1000 ML** 2,000 ML IV ONE (20:28)
[2019-03-27] MEDS ORDERED: Ketorolac INJ* 30 MG/ML 1 ML VIAL IV PUSH ONE (20:29)
[2019-03-27 20:49] LABS: ABS Eosinophils 0.1 10^3/ul (0-0.6); ABS Lymphocytes 2.2 10^3/ul (1.0-4.8); ABS Monocytes 0.5 10^3/ul (0-0.8); ABS Neutrophils 6.6 10^3/ul (1.5-7.7); Eosinophil % 0.7 %; Hematocrit 35 % (35-47); Hemoglobin 11.7 g/dL (12.0-16.0); Lymphocyte % 23.3 %; Mean Corpuscular HGB Conc 34 g/dL (31-36); Mean Corpuscular Hemoglobin 29 pg (27-31); Mean Corpuscular Volume 86 fL (80-97); Mean Platelet Volume 7.8 fL (7.4-10.4); Platelet Count 229 10^3/uL (150-450); Red Blood Count 4.09 10^6 /uL (3.70-4.87); Red Cell Distribution Width 13 % (10-15); White Blood Count 9.3 10^3/uL (3.5-10.8)
[2019-03-27 21:06] LABS: Albumin/Globulin Ratio 1.6 (1-3); BUN/Creatinine Ratio 15.6 (8-20); C Reactive Protein 19.94 mg/L (<8.01); Calcium 8.7 mg/dL (8.6-10.3); EGFR African American 127.8 (>60); EGFR Non-African American 105.6 (>60); Globulin 2.5 g/dL (2-4); Potassium 3.8 mmol/L (3.5-5.0); Total Bilirubin 0.2 mg/dL (0.2-1.0); Total Protein 6.5 g/dL (6.4-8.9)
[2019-03-27] MEDS: Ondansetron INJ* 2 MG/ML VIAL IV ONE (23:05)
[2019-03-28] MEDS ORDERED: Iohexol 300* (CONTRAST) 10 ML SDV IV ONE (00:14)
[2019-03-28] MEDS: Ondansetron INJ* 2 MG/ML VIAL IV ONE (01:24)
[2019-03-28 02:35] VITALS: BP 113/76
--- NOTE | 2019-03-30 15:04 | ED ---
Imaging and Labs Follow Up Follow Up Type: Labs/Cultures Labs/Culture Result: Group B strep Positive Patient Communication/Plan: Strep group B 100,000 Pt states she has always had this since her She has been off and on antibiotic for this since the of her child She denies any symptoms Denies f/s/c Continues to have pain Followed up with OBGYN yesterday Patient Communication/Plan: Discussed with patient - no tx at this time Provider Diagnoses: Abdominal pain
== END 2019-03-28 02:34 | disposition home or self-care (01) ==
LOC: ED 19:23
DX: R10.9 Unspecified abdominal pain (principal); F41.9 Anxiety disorder, unspecified; F32.9 Major depressive disorder, single episode, unspecified; Z87.891 Personal history of nicotine dependence
CPT/HCPCS: 36415; 74177; 76856; 80053; 83690; 85025; 86140; 96361; 96374; 96375; 99283; J1885; J2405; Q9967